=== PATIENT | female | born 1985 | race American Indian/Alaskan Native ===

== ENCOUNTER 2024-10-23 21:12 | Emergency (ER) | payer OTHER ==
[~2024-10-23] VITALS: Ht 175.3 cm; Wt 86.3 kg
--- OUTSIDE RECORDS SUMMARY | 2024-10-23 21:43 | XMS ---
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 [place] - 2 Visits in 30 Days CARE PROVIDERS ABDULLAHI COOPER Family [facility] 06/19/2021-Current PHONE: Unknown Care Guidelines exist for the following facilities: [facility] ( 10/18/2020 ) Jeff VISIT COUNT (12 MO.) 1 [facility] [place] [address] [facility] [facility] TOTAL 5 NOTE: Visits indicate total known visits. ED/UCC VISIT TRACKING (12 MO.) 10/23/2024 21:[address] [facility] [address] [facility] TYPE: Emergency COMPLAINT: - WITHDRAWLS 09/29/2024 20:01 [facility] TYPE: Emergency COMPLAINT: - Possible UTI DIAGNOSES: - Urgency of urination - Dysuria - Possible UTI 06/25/2024 22:59 [facility] TYPE: Emergency DIAGNOSES: 98321. cellulitis 98515. Cellulitis of unspecified part of limb 05/27/2024 15:05 [facility] TYPE: Emergency COMPLAINT: - knee pain, UTI, abdominal pain DIAGNOSES: 0. Elevation of levels of liver transaminase levels 0. Generalized abdominal pain 0. Other pancytopenia 0. Rash and other nonspecific skin eruption 01/29/2024 00:12 [place] [facility] TYPE: Emergency DIAGNOSES: - Alcoholic cirrhosis of liver without ascites - Calculus of gallbladder without cholecystitis without obstruction - Other specified abnormal findings of blood chemistry - Precordial pain - Chest Pain INPATIENT VISIT TRACKING (12 MO.) No inpatient visits to display in this time frame [email or web address]
[2024-10-23] MEDS ORDERED: LORazepam 2 MG/ML VIAL IV ONE (21:45)
[2024-10-23] MEDS ORDERED: MULTIVITAMINS 10 ML,FOLIC ACID 1 MG,THIAMINE HCL 100 MG in SODIUM CHLORIDE 0.9% 1,000 ML IV ONE (21:45)
[2024-10-23] MEDS ORDERED: OMEPRAZOLE20 MG (21:51)
[2024-10-23] MEDS ORDERED: CYCLOBENZAPRINE10 MG (21:51)
[2024-10-23] MEDS ORDERED: FOLIC ACID 1 MG/0.2 ML ML ONE (21:57)
[2024-10-23 22:05] LABS: BASOPHILS 1.2 % (0-2); EOSINOPHILS 0.1 % (0-6); HEMOGLOBIN 13.8 g/dL (12.0-18.0); LYMPHOCYTES 47.2 % (24-44); MCH 32.1 (27-36); MCHC 34.5 g/dl (30-36); MCV 93.1 fl (81-99); MONOCYTES 8.8 % (0-12); NEUTROPHILS 42.7 % (39-80); PLATELET COUNT 177 K/uL (140-440); RBC 4.29 M/ul (4.3-5.7); RDW 14.4 (10.5-15.0)
[2024-10-23 22:31] LABS: ACETAMINOPHEN 0 ug/mL (10-30); ALBUMIN 4.3 g/dL (3.4-5.0); ALBUMIN/GLOBULIN RATIO 0.83 (1.1-2.4); ALKALINE PHOSPHATASE 123 U/L (46-116); ALT (SGPT) 53 U/L (14-59); ANION GAP 15.6 (7-21); AST (SGOT) 75 U/L (15-37); BILIRUBIN, TOTAL 0.5 ng/dL (0.2-1.0); BUN/CREATININE RATIO 9.45 (6.0-28.6); CARBON DIOXIDE 26 mmol/L (21-32); CHLORIDE 101 mmol/L (98-107); CREATININE, SERUM 0.74 mg/dL (0.55-1.02); GLOMERULAR FILTRATION RATE,EST 106 mL/min (>60); MAGNESIUM 1.8 mg/dL (1.8-2.4); POTASSIUM 3.6 mmol/L (3.5-5.1); PROTEIN, TOTAL 9.5 g/dL (6.4-8.2); SALICYLATE 1.9 mg/dL (2.8-20.0); TSH, 3RD GENERATION 0.641 uIU/mL (0.358-3.740); UREA NITROGEN 7 mg/dL (7-18)
[2024-10-23 22:33] LABS: ALCOHOL, MEDICAL 421 ng/dL (<3)
[2024-10-23 23:01] LABS: BILIRUBIN, URINE NEGATIVE (negative); BLOOD/HGB, URINE NEGATIVE (Negative); KETONE, URINE NEGATIVE (Negative); LEUK ESTERASE, URINE NEGATIVE (negative); NITRITE, URINE NEGATIVE (negative)
[2024-10-23 23:14] LABS: AMPHETAMINES, URINE NEGATIVE (NEGATIVE); BARBITURATES, URINE NEGATIVE (NEGATIVE); BENZODIAZEPINE, URINE NEGATIVE (NEGATIVE); BUPRENORPHINE, URINE NEGATIVE (NEGATIVE); CANNABINOID, URINE NEGATIVE (NEGATIVE); COCAINE, URINE NEGATIVE (NEGATIVE); ECSTASY, URINE NEGATIVE (NEGATIVE); FENTANYL, URINE NEGATIVE (NEGATIVE); METHADONE, URINE NEGATIVE (NEGATIVE); OPIATES, URINE NEGATIVE (NEGATIVE); OXYCODONE, URINE NEGATIVE (NEGATIVE); PHENCYCLIDINE, URINE NEGATIVE (NEGATIVE)
[2024-10-24] MEDS ORDERED: NALTREXONE HCL50 MG PO (03:07)
[2024-10-24] MEDS ORDERED: CHLORDIAZEPOXID25 MG PO (03:07)
[2024-10-24] MEDS ORDERED: LORazepam 1 MG HOME.PACK PO ONE (03:15)
[2024-10-24 03:25] VITALS: BP 107/71
== END 2024-10-24 03:25 | disposition home or self-care (01) ==
LOC: ED 21:12
PROVIDERS: Family Medicine
DX: F10.90 Alcohol use, unspecified, uncomplicated (principal); Z79.899 Other long term (current) drug therapy; Z88.2 Allergy status to sulfonamides; Z88.1 Allergy status to other antibiotic agents; Z88.0 Allergy status to penicillin; Z88.8 Allergy status to other drugs, medicaments and biological substances
CPT/HCPCS: 36415; 80053; 80307; 81003; 83735; 84443; 84703; 85025; 96365; 96375; 99284-25; G0480; J2060; J3411; J7030